=== PATIENT | male | born 1945 | race Caucasian/White ===

== ENCOUNTER → 2019-03-13 | Outpatient (CLI) | payer MEDICARE, OTHER ==
[~2019-03-13] MED LIST: ASPIR 8181 MG PO; ATORVASTATIN CA20 MG PO; CLOPIDOGREL75 MG PO; DIGOXIN250 MCG PO; METOPROLOL SUCC50 MG PO; MULTI-VITAMIN1 EACH PO; SYNTHROID100 MCG PO; TAMSULOSIN HCL0.4 MG PO
--- NOTE | 2019-03-13 13:33 | Diagnostic Imaging Report ---
Exam: Left foot 3 views Clinical History: Gout Findings: There is no evidence of acute fracture or malalignment. The articular joints are well-preserved. The soft tissue is unremarkable. Impression: No radiographic evidence of acute osseous injury. Signed by: Dr. Lobo Braga MD on 03/13/2019 1:30 PM
== END ==
LOC: RAD 12:26
PROVIDERS: ATTEND Internal Medicine
DX: M10.472 Other secondary gout, left ankle and foot (principal)

== ENCOUNTER → 2021-07-15 | Outpatient (CLI) | payer MEDICARE, OTHER | LOC: RAD 14:36 | PROVIDERS: ATTEND Urology | DX: N20.0 Calculus of kidney (principal) | CPT/HCPCS: 74018 ==

== ENCOUNTER → 2021-08-31 | Outpatient (CLI) | payer MEDICARE, OTHER | LOC: CT 13:34 | PROVIDERS: ATTEND Urology | DX: N20.0 Calculus of kidney (principal) | CPT/HCPCS: 74176 ==

== ENCOUNTER 2021-11-20 13:12 | Inpatient (IN) | payer MEDICARE, OTHER ==
[~2021-11-20] VITALS: Ht 190.5 cm; Wt 98.0 kg
[2021-11-20] MEDS ORDERED: SODIUM CHLORIDE FLUSH 10 ML SYR IV PRN (13:30)
[2021-11-20 14:05] LABS: BASOPHILS % 0.4 % (0.0-1.0); EOSINOPHILS # (AUTO) 0.2 (0.0-0.4); EOSINOPHILS % 1.9 % (0.0-6.0); HEMATOCRIT 49.1 % (38.2-49.6); HEMOGLOBIN 15.8 g/dL (14.0-18.0); LYMPHOCYTES # (AUTO) 1.8 (1.0-3.2); MEAN CORPUSCULAR HEMOGLOBIN 31.7 pg (28-32); MEAN CORPUSCULAR HGB CONC 32.2 g/dL (31-35); MEAN CORPUSCULAR VOLUME 98.4 fL (81-99); MONOCYTES # (AUTO) 0.7 (0.2-0.8); MONOCYTES % 8.4 % (4.4-11.3); NEUTROPHILS # (AUTO) 5.1 (2.1-6.9); PLATELET COUNT 124 x10e3/uL (140-360); RED BLOOD COUNT 4.99 x10e6/uL (4.3-5.7); RED CELL DISTRIBUTION WIDTH 14.7 % (11.7-14.4)
[2021-11-20] MEDS ORDERED: ALBUTEROL/IPRATROPIUM 3 ML NEB NEB ONE (14:15)
[2021-11-20] MEDS ORDERED: METHYLPREDNISOLONE SOD SUCC 125 MG/2ML VIAL IV ONE (14:15)
[2021-11-20 15:39] LABS: ALANINE AMINOTRANSFERASE 25 IU/L (0-55); ALBUMIN 3.7 g/dL (3.5-5.0); ALKALINE PHOSPHATASE 79 IU/L (40-150); ANION GAP 14.1 mmol/L (8-16); BLOOD UREA NITROGEN 20 mg/dL (7-26); BUN/CREATININE RATIO 13 (6-25); CALCIUM 10.5 mg/dL (8.4-10.2); CARBON DIOXIDE 26 mmol/L (22-29); CHLORIDE 104 mmol/L (98-107); GLUCOSE 128 mg/dL (74-118); MAGNESIUM 1.8 MG/DL (1.3-2.1); POTASSIUM 4.1 mmol/L (3.5-5.1); SODIUM 140 mmol/L (136-145)
[2021-11-20] MEDS ORDERED: SODIUM CHLORIDE 0.9% 1000ML 1,000 ML IV STA (15:49)
[2021-11-20] MEDS ORDERED: IOPAMIDOL 370 MG/ML 100 ML INFUS..BTL INJ ONE (16:38)
[2021-11-20] MEDS ORDERED: ONDANSETRON HCL INJ 2MG/ML 2ML 2 MG/ML VIAL IV PRN (16:45)
[2021-11-20] MEDS ORDERED: MELATONIN 3 MG TAB PO PRN (18:45)
[2021-11-20] MEDS ORDERED: GUAIFENESIN/DEXTROMETHORPHAN LIQD 5 ML UDC PO PRN (18:45)
[2021-11-20] MEDS ORDERED: DOCUSATE SODIUM 100 MG CAP PO PRN (18:45)
[2021-11-20] MEDS ORDERED: FUROSEMIDE INJ 10 MG/ML 2 ML VIAL IV ONE (18:45)
[2021-11-20] MEDS ORDERED: HYDRALAZINE HCL 20 MG/ML VIAL IV PRN (18:45)
[2021-11-20] MEDS ORDERED: ALBUTEROL SULF 0.083% NEB SOLN 3 ML NEB NEB PRN (18:45)
[2021-11-20] MEDS ORDERED: ACETAMINOPHEN 325 MG TAB PO PRN (18:45)
[2021-11-20] MEDS ORDERED: ALBUTEROL/IPRATROPIUM 3 ML NEB NEB SCH (19:00)
[2021-11-20] MEDS ORDERED: PREDNISONE10 MG PO (19:23)
[2021-11-20] MEDS ORDERED: SPIRIVA RESPIMAT4 GM INH (19:23)
[2021-11-20] MEDS ORDERED: ZITHROMAX250 MG PO (19:23)
[2021-11-20] MEDS ORDERED: PROAIR HFA INH8.5 GM INH (19:23)
[2021-11-20 22:15] VITALS: BP 139/92
[2021-11-20 22:53] VITALS: BP 139/92
[2021-11-21] VITALS (8 sets, daily range): BP systolic 122–142; BP diastolic 62–99
[2021-11-21] MEDS: IPRATROPIUM BROMIDE 0.02% 2.5 ML NEB NEB SCH ×7 (00:15→23:30)
[2021-11-21] MEDS ORDERED: AMLODIPINE BESYL5 MG PO (00:26)
[2021-11-21] MEDS ORDERED: FINASTERIDE5 MG PO (00:27)
[2021-11-21] MEDS ORDERED: LASIX10 MG/ML PO (00:28)
[2021-11-21 01:21] LABS: CREATINE KINASE 58 IU/L (30-200)
[2021-11-21] MEDS: LEVOTHYROXINE SODIUM 100 MCG TAB PO SCH (07:30)
[2021-11-21 07:53] LABS: BASOPHILS % 0.1 % (0.0-1.0); LYMPHOCYTES # (AUTO) 1.1 (1.0-3.2); LYMPHOCYTES % 10.8 % (18.0-39.1); MEAN CORPUSCULAR HEMOGLOBIN 31.4 pg (28-32); MEAN CORPUSCULAR HGB CONC 32.7 g/dL (31-35); MEAN CORPUSCULAR VOLUME 96.3 fL (81-99); MONOCYTES # (AUTO) 0.5 (0.2-0.8); MONOCYTES % 4.8 % (4.4-11.3); NEUTROPHILS # (AUTO) 8.2 (2.1-6.9); NEUTROPHILS % 83.5 % (38.7-80.0); PLATELET COUNT 138 x10e3/uL (140-360); RED BLOOD COUNT 5.09 x10e6/uL (4.3-5.7); RED CELL DISTRIBUTION WIDTH 14.6 % (11.7-14.4)
[2021-11-21] MEDS: METHYLPREDNISOLONE SOD SUCC 40 MG/ML VIAL 1ML IV SCH ×2 (08:00→20:00)
[2021-11-21 08:45] LABS: CREATININE, SERUM 1.13 mg/dL (0.72-1.25)
[2021-11-21] MEDS: ASPIRIN 81 MG CHEW TAB PO SCH (08:53)
[2021-11-21] MEDS: ATORVASTATIN 40 MG TAB PO SCH (08:53)
[2021-11-21] MEDS: TAMSULOSIN HCL 0.4 MG CAP PO SCH (08:53)
[2021-11-21] MEDS: AZITHROMYCIN 250 MG TAB PO SCH (08:54)
[2021-11-21] MEDS ORDERED: METOPROLOL SUCCINATE 50 MG TAB XL PO SCH ×2 (09:00→11:00)
[2021-11-21] MEDS ORDERED: CLOPIDOGREL BISULFATE 75 MG TAB PO SCH (09:00)
[2021-11-21 09:24] LABS: CREATINE KINASE 51 IU/L (30-200)
[2021-11-21] MEDS: FUROSEMIDE INJ 10 MG/ML 4 ML VIAL IV SCH ×2 (11:00→20:12)
[2021-11-21] MEDS: METOPROLOL SUCCINATE 50 MG TAB XL PO SCH (20:12)
[2021-11-22] VITALS: BP 132/93
[2021-11-22] MEDS: IPRATROPIUM BROMIDE 0.02% 2.5 ML NEB NEB SCH ×4 (03:30→14:00)
[2021-11-22 04:00] VITALS: BP 127/85
[2021-11-22] MEDS: LEVOTHYROXINE SODIUM 100 MCG TAB PO SCH (07:30)
[2021-11-22] MEDS: METHYLPREDNISOLONE SOD SUCC 40 MG/ML VIAL 1ML IV SCH (08:00)
[2021-11-22] MEDS: AZITHROMYCIN 250 MG TAB PO SCH (09:00)
[2021-11-22] MEDS: ATORVASTATIN 40 MG TAB PO SCH (09:00)
[2021-11-22] MEDS ORDERED: DIGOXIN 0.125 MG TAB PO SCH (09:00)
[2021-11-22] MEDS: TAMSULOSIN HCL 0.4 MG CAP PO SCH (09:00)
[2021-11-22] MEDS: FUROSEMIDE INJ 10 MG/ML 4 ML VIAL IV SCH (09:00)
[2021-11-22] MEDS: ASPIRIN 81 MG CHEW TAB PO SCH (09:00)
[2021-11-22 09:04] VITALS: BP 145/91
[2021-11-22] MEDS: METOPROLOL SUCCINATE 50 MG TAB XL PO SCH (09:35)
[2021-11-22 09:51] VITALS: BP 145/91
[2021-11-22 12:39] VITALS: BP 131/85
[2021-11-22] MEDS ORDERED: METOPROLOL SUCC50 MG PO (13:13)
[2021-11-22 16:33] VITALS: BP 141/96
[2021-11-22] MEDS ORDERED: FUROSEMIDE 40 MG TAB PO SCH (18:00)
[2021-11-22] MEDS ORDERED: METOPROLOL SUCCINATE 50 MG TAB XL PO SCH (22:00)
== END 2021-11-22 17:27 | disposition home or self-care (01) | DRG 291 ==
LOC: ER 13:19 → ERHOLD 16:41 → MED/SURG2 22:10
PROVIDERS: ADMIT Internal Medicine Critical Care Medicine; ATTEND Internal Medicine Critical Care Medicine
DX: I13.0 Hypertensive heart and chronic kidney disease with heart failure and stage 1 through stage 4 chronic kidney disease, or unspecified chronic kidney disease (principal); I50.33 Acute on chronic diastolic (congestive) heart failure; J44.1 Chronic obstructive pulmonary disease with (acute) exacerbation; I48.20 Chronic atrial fibrillation, unspecified; N17.9 Acute kidney failure, unspecified; D89.2 Hypergammaglobulinemia, unspecified; E11.22 Type 2 diabetes mellitus with diabetic chronic kidney disease; R59.0 Localized enlarged lymph nodes; R09.02 Hypoxemia; N18.2 Chronic kidney disease, stage 2 (mild); I25.10 Atherosclerotic heart disease of native coronary artery without angina pectoris; E83.52 Hypercalcemia; E78.5 Hyperlipidemia, unspecified; E03.9 Hypothyroidism, unspecified; Z86.16 Personal history of COVID-19; Z95.5 Presence of coronary angioplasty implant and graft; Z95.820 Peripheral vascular angioplasty status with implants and grafts; Z87.891 Personal history of nicotine dependence; Z95.818 Presence of other cardiac implants and grafts; Z20.822 Contact with and (suspected) exposure to COVID-19
CPT/HCPCS: 0223U; 36415; 71045; 71260; 80048; 80053; 82550; 82553; 83735; 83880; 84443; 84484; 85025; 85379; 93005; 93306; 94640; 94760; 94799; 99284; J1940; J2920; J2930; J7030; Q9967

== ENCOUNTER → 2022-01-11 | Outpatient (CLI) | payer MEDICARE, OTHER ==
[~2022-01-11] MED LIST changes: +AMLODIPINE BESYL5 MG PO; +FINASTERIDE5 MG PO; +LASIX10 MG/ML PO; +PREDNISONE10 MG PO; +PROAIR HFA INH8.5 GM INH; +SPIRIVA RESPIMAT4 GM INH; +ZITHROMAX250 MG PO
== END ==
LOC: RAD 11:34
PROVIDERS: ATTEND Internal Medicine Critical Care Medicine
DX: R09.02 Hypoxemia (principal); J18.9 Pneumonia, unspecified organism; J44.9 Chronic obstructive pulmonary disease, unspecified; B97.89 Other viral agents as the cause of diseases classified elsewhere; J81.1 Chronic pulmonary edema; Z86.16 Personal history of COVID-19; Z87.891 Personal history of nicotine dependence
CPT/HCPCS: 71046

== ENCOUNTER → 2022-03-17 | Outpatient (CLI) | payer MEDICARE, OTHER | LOC: RAD 14:23 | PROVIDERS: ATTEND Urology | DX: N20.0 Calculus of kidney (principal) | CPT/HCPCS: 74018 ==

== ENCOUNTER → 2022-05-06 | Outpatient (CLI) | payer MEDICARE, OTHER | LOC: RESP 07:51 | PROVIDERS: ATTEND Internal Medicine Critical Care Medicine | DX: R09.02 Hypoxemia (principal); J44.9 Chronic obstructive pulmonary disease, unspecified; J18.9 Pneumonia, unspecified organism; B97.89 Other viral agents as the cause of diseases classified elsewhere; J81.1 Chronic pulmonary edema; Z87.891 Personal history of nicotine dependence; Z86.16 Personal history of COVID-19 | CPT/HCPCS: 94060; 94727; 94729 ==

== ENCOUNTER → 2022-08-03 | Outpatient (CLI) | payer MEDICARE, OTHER ==
[2022-08-03 09:51] LABS: BASOPHILS # (AUTO) 0.1 (0.0-0.1); BASOPHILS % 0.8 % (0.0-1.0); EOSINOPHILS # (AUTO) 0.1 (0.0-0.4); EOSINOPHILS % 1.9 % (0.0-6.0); HEMATOCRIT 53.8 % (38.2-49.6); HEMOGLOBIN 17.6 g/dL (14.0-18.0); LYMPHOCYTES # (AUTO) 1.4 (1.0-3.2); LYMPHOCYTES % 18.9 % (18.0-39.1); MEAN CORPUSCULAR HEMOGLOBIN 31.4 pg (28-32); MEAN CORPUSCULAR HGB CONC 32.7 g/dL (31-35); MEAN CORPUSCULAR VOLUME 96.1 fL (81-99); MONOCYTES # (AUTO) 0.7 (0.2-0.8); MONOCYTES % 8.9 % (4.4-11.3); NEUTROPHILS # (AUTO) 5.2 (2.1-6.9); NEUTROPHILS % 69.1 % (38.7-80.0); PLATELET COUNT 145 x10e3/uL (140-360); RED CELL DISTRIBUTION WIDTH 14.2 % (11.7-14.4)
[2022-08-03 10:18] LABS: ALBUMIN 4.1 g/dL (3.5-5.0); ALBUMIN/GLOBULIN RATIO 1.1 (0.8-2.0); ANION GAP 14.1 mmol/L (8-16); CALCIUM 10.1 mg/dL (8.4-10.2); CREATININE, SERUM 1.52 mg/dL (0.72-1.25); POTASSIUM 4.1 mmol/L (3.5-5.1)
[2022-08-03 10:39] LABS: DIGOXIN 0.77 ng/mL (0.8-2.0)
== END ==
LOC: RAD 09:08
PROVIDERS: ATTEND Internal Medicine Cardiovascular Disease
DX: I50.32 Chronic diastolic (congestive) heart failure (principal); I48.11 Longstanding persistent atrial fibrillation; J44.9 Chronic obstructive pulmonary disease, unspecified; R60.0 Localized edema
CPT/HCPCS: 36415; 71046; 80053; 80162; 83880; 85025

== ENCOUNTER 2022-09-14 16:42 | Outpatient (RCR) | payer MEDICARE, OTHER | END 2022-10-03 | LOC: RESP 16:42 | PROVIDERS: ATTEND Internal Medicine Critical Care Medicine | DX: R09.02 Hypoxemia (principal); J44.9 Chronic obstructive pulmonary disease, unspecified; J18.9 Pneumonia, unspecified organism; B97.89 Other viral agents as the cause of diseases classified elsewhere; J81.1 Chronic pulmonary edema; I27.20 Pulmonary hypertension, unspecified; Z86.16 Personal history of COVID-19; Z87.891 Personal history of nicotine dependence | CPT/HCPCS: 94799 ==

== ENCOUNTER 2022-10-04 12:28 | Outpatient (RCR) | payer MEDICARE, OTHER | END 2022-11-03 | LOC: RESP 12:28 | PROVIDERS: ATTEND Internal Medicine Critical Care Medicine | DX: J44.9 Chronic obstructive pulmonary disease, unspecified (principal); R09.02 Hypoxemia; J18.9 Pneumonia, unspecified organism; B97.89 Other viral agents as the cause of diseases classified elsewhere; I27.20 Pulmonary hypertension, unspecified; J81.1 Chronic pulmonary edema; Z86.16 Personal history of COVID-19; Z87.891 Personal history of nicotine dependence | CPT/HCPCS: 94626 ×8; G0238 ×8 ==

== ENCOUNTER 2022-11-08 10:16 | Outpatient (RCR) | payer MEDICARE, OTHER | END 2022-12-03 | LOC: RESP 10:16 | PROVIDERS: ATTEND Internal Medicine | DX: R09.02 Hypoxemia (principal); J44.9 Chronic obstructive pulmonary disease, unspecified; J18.9 Pneumonia, unspecified organism; J81.1 Chronic pulmonary edema; I27.20 Pulmonary hypertension, unspecified; B97.89 Other viral agents as the cause of diseases classified elsewhere; Z86.16 Personal history of COVID-19; Z87.891 Personal history of nicotine dependence ==